=== PATIENT | female | born 1985 | race Caucasian/White ===

== ENCOUNTER 2020-10-26 13:54 | Inpatient (IN) | payer MEDICAID ==
[~2020-10-26] VITALS: Ht 160 cm; Wt 101.2 kg
[2020-10-26] MEDS ORDERED: SODIUM CHLORIDE 0.9% 1000ML BAG (SEPSIS BOLUS) IV ONE (14:30)
[2020-10-26] MEDS ORDERED: ACETAMINOPHEN 325MG TABLET PO ONE (14:30)
[2020-10-26] MEDS ORDERED: CEFTRIAXONE 1 G PREMIX 50 ML IV ONE (14:30)
[2020-10-26] MEDS ORDERED: AZITHROMYCIN 500 MG in DEXT 5% WATER 250 ML IV ONE (14:30)
[2020-10-26 15:04] LABS: CHLORIDE 103 mEq/L (98-107)
[2020-10-26 15:06] LABS: BASOPHILS % 0.5 % (0.0-2.0); HEMOGLOBIN. 14.3 g/dL (12.0-16.0); INR 1.1; LYMPHOCYTES % 11.9 % (20.0-50.0); MEAN CORPUSCULAR HEMOGLOBIN 26.3 pg (28.0-32.0); MEAN CORPUSCULAR VOLUME 80.5 fL (81.0-99.0); MEAN PLATELET VOLUME 11.3 fl (7.4-10.4); MONOCYTES % 7.1 % (2.0-8.0); NEUTROPHILS % 80.5 % (40.0-76.0); PLATELET 185 x1000/uL (130-400); PROTHROMBIN TIME 11.4 sec (9.6-11.0); RED BLOOD CELL COUNT 5.46 mill/uL (4.2-5.4); RED CELL DISTRIBUTION WIDTH 15.3 % (11.6-14.6)
[2020-10-26 15:08] LABS: ETHANOL BLOOD < 10 mg/dL
[2020-10-26 15:13] LABS: HCG SCREEN NEGATIVE
[2020-10-26 15:15] LABS: CREATINE KINASE 83 IU/L (26-192)
[2020-10-26] MEDS ORDERED: DEXAMETHASONE 10 MG/ML VIAL IV NR (15:30)
[2020-10-26] MEDS ORDERED: KETOROLAC 15MG/ML VIAL IV NR (15:30)
[2020-10-26 16:24] LABS: CLARITY URINE CLEAR (CLEAR); COLOR URINE YELLOW (YELLOW); KETONES URINE 2+ (NEGATIVE); LEUKOCYTE ESTERASE URINE NEGATIVE (NEGATIVE); NITRITE URINE NEGATIVE (NEGATIVE); OCCULT BLOOD URINE NEGATIVE (NEGATIVE); PH URINE 5.5 (4.5-8.0); PROTEIN URINE 2+ (NEGATIVE)
[2020-10-26 17:02] LABS: *AMPHETAMINES SCREEN URINE NEGATIVE (NEGATIVE); *BARBITURATES SCREEN URINE NEGATIVE (NEGATIVE); *BENZODIAZEPINES SCREEN URINE NEGATIVE (NEGATIVE); *COCAINE SCREEN URINE NEGATIVE (NEGATIVE); METHADONE URINE SCREEN NEGATIVE (NEGATIVE); OPIATES URINE SCREEN NEGATIVE (NEGATIVE)
[2020-10-26 17:03] LABS: CANNABINOID URINE SCREEN NEGATIVE (NEGATIVE); PHENCYCLIDINE URINE SCREEN NEGATIVE (NEGATIVE)
[2020-10-26] MEDS ORDERED: NA PHOS,M-B/NA PHOS,DI-BA ENEMA 118ML PR PRN (19:30)
[2020-10-26] MEDS ORDERED: MAGNESIUM/ALUMINUM HYDROXIDE/SIMETHICONE 30ML UDC PO PRN (19:30)
[2020-10-26] MEDS ORDERED: DIPHENHYDRAMINE 50MG/ML VIAL IV PRN (19:30)
[2020-10-26] MEDS ORDERED: CLONIDINE 0.1MG TABLET PO PRN (19:30)
[2020-10-26] MEDS ORDERED: ENOXAPARIN 40MG/0.4ML SYR SUBCUT SCH (21:00)
[2020-10-26] MEDS: ONDANSETRON HCL 4MG/2ML INJ IV PRN (22:10)
[2020-10-26] MEDS ORDERED: IOHEXOL-350 100 ML BOTTLE ONE (23:21)
[2020-10-27 04:12] VITALS: BP 119/79
[2020-10-27 04:13] VITALS: BP 119/79
[2020-10-27] MEDS ORDERED: P20 MT (04:27)
[2020-10-27] MEDS ORDERED: LEVO50TA8 MT (04:27)
[2020-10-27] MEDS ORDERED: OMEP20CA14 MT (04:27)
[2020-10-27] MEDS ORDERED: CHOL200026 PO (04:27)
[2020-10-27] MEDS ORDERED: GUAIFENESIN-DM 200MG-20MG/10ML UDC PO PRN (04:45)
[2020-10-27] MEDS ORDERED: NALOXONE HCL 0.4MG/ML VIAL IV PRN (04:45)
[2020-10-27] MEDS: ALBUTEROL 6.7GM HFA INHALER ORI PRN (04:48)
[2020-10-27] MEDS ORDERED: *PATIENT'S OWN MEDICATION STORAGE XX SCH (05:00)
[2020-10-27 08:00] VITALS: BP 110/51
[2020-10-27] MEDS ORDERED: FAMOTIDINE 20MG/2ML VIAL IV SCH (09:00)
[2020-10-27] MEDS ORDERED: DEXAMETHASONE 10 MG/ML VIAL IV SCH (09:00)
[2020-10-27 09:56] LABS: BASOPHILS % 0.3 % (0.0-2.0); HEMATOCRIT. 38.7 % (36.0-48.0); HEMOGLOBIN. 12.7 g/dL (12.0-16.0); LYMPHOCYTES % 30.7 % (20.0-50.0); MEAN CORPUSCULAR HEMOGLOBIN 26.3 pg (28.0-32.0); MEAN CORPUSCULAR VOLUME 80.1 fL (81.0-99.0); MEAN PLATELET VOLUME 11.6 fl (7.4-10.4); MONOCYTES % 6.2 % (2.0-8.0); NEUTROPHILS % 62.8 % (40.0-76.0); PLATELET 151 x1000/uL (130-400); RED BLOOD CELL COUNT 4.84 mill/uL (4.2-5.4); RED CELL DISTRIBUTION WIDTH 14.8 % (11.6-14.6)
[2020-10-27 10:15] LABS: CHLORIDE 108 mEq/L (98-107)
[2020-10-27 10:23] LABS: LDL CHOLESTEROL 84 mg/dL (5-100)
[2020-10-27 10:25] LABS: HDL CHOLESTEROL 25 mg/dL (40-59)
[2020-10-27 12:00] VITALS: BP 97/60
[2020-10-27] MEDS: GUAIFENESIN-DM 200MG-20MG/10ML UDC PO PRN ×2 (12:57→20:41)
[2020-10-27] MEDS: CEFTRIAXONE 1,000 MG in DEXTROSE 5% WATER 50 ML IV SCH (14:43)
[2020-10-27] MEDS: AZITHROMYCIN 500 MG in DEXT 5% WATER 250 ML IV SCH (14:43)
[2020-10-27] MEDS ORDERED: CEFTRIAXONE 1 G PREMIX 50 ML IV SCH (15:00)
[2020-10-27] MEDS ORDERED: AZITHROMYCIN 500 MG in DEXT 5% WATER 250 ML IV SCH (17:00)
[2020-10-27 20:00] VITALS: BP 114/66
[2020-10-27] MEDS: ENOXAPARIN 30MG/0.3ML SYR SUBCUT SCH (20:41)
[2020-10-27] MEDS: HYDROCODONE/ACETAMINOPHEN 5/325MG TABLET PO PRN (20:42)
[2020-10-28] VITALS: BP 107/58
[2020-10-28] MEDS: ACETAMINOPHEN 325MG TABLET PO PRN ×4 (00:35→20:57)
[2020-10-28 04:00] VITALS: BP 104/47
[2020-10-28] MEDS: LEVOTHYROXINE SODIUM 50MCG TABLET PO SCH ×2 (06:24→07:40)
[2020-10-28] MEDS: ALBUTEROL 6.7GM HFA INHALER ORI PRN (06:28)
[2020-10-28] MEDS ORDERED: OMEPRAZOLE 20MG CAPSULE EXTENDED RELEASE PO SCH (07:40)
[2020-10-28] MEDS: OMEPRAZOLE 20MG CAPSULE EXTENDED RELEASE PO SCH (07:53)
[2020-10-28 08:00] VITALS: BP 120/70
[2020-10-28] MEDS: ENOXAPARIN 30MG/0.3ML SYR SUBCUT SCH (08:08)
[2020-10-28] MEDS ORDERED: PREDNISONE 20MG TABLET PO SCH (09:00)
[2020-10-28 12:00] VITALS: BP 117/77
[2020-10-28] MEDS: AZITHROMYCIN 500 MG in DEXT 5% WATER 250 ML IV SCH (14:27)
[2020-10-28] MEDS: CEFTRIAXONE 1,000 MG in DEXTROSE 5% WATER 50 ML IV SCH (15:29)
[2020-10-28] MEDS: ONDANSETRON HCL 4MG/2ML INJ IV PRN (15:29)
[2020-10-28 16:00] VITALS: BP 115/82
[2020-10-28] MEDS: GUAIFENESIN-DM 200MG-20MG/10ML UDC PO PRN (17:38)
[2020-10-28 18:29] LABS: BASOPHILS % 0.3 % (0.0-2.0); HEMATOCRIT. 43.2 % (36.0-48.0); HEMOGLOBIN. 13.7 g/dL (12.0-16.0); LYMPHOCYTES % 27.4 % (20.0-50.0); MEAN CORPUSCULAR HEMOGLOBIN 25.6 pg (28.0-32.0); MEAN CORPUSCULAR VOLUME 80.9 fL (81.0-99.0); MEAN PLATELET VOLUME 11.6 fl (7.4-10.4); MONOCYTES % 11.5 % (2.0-8.0); NEUTROPHILS % 60.8 % (40.0-76.0); PLATELET 181 x1000/uL (130-400); RED BLOOD CELL COUNT 5.34 mill/uL (4.2-5.4); RED CELL DISTRIBUTION WIDTH 15.1 % (11.6-14.6)
[2020-10-28 18:42] LABS: CHLORIDE 104 mEq/L (98-107)
[2020-10-28 20:00] VITALS: BP 120/70
[2020-10-28] MEDS: ENOXAPARIN 40MG/0.4ML SYR SUBCUT SCH (20:57)
[2020-10-28 22:24] LABS: CLARITY URINE CLEAR (CLEAR); COLOR URINE YELLOW (YELLOW); KETONES URINE TRACE (NEGATIVE); LEUKOCYTE ESTERASE URINE NEGATIVE (NEGATIVE); NITRITE URINE NEGATIVE (NEGATIVE); OCCULT BLOOD URINE NEGATIVE (NEGATIVE); PROTEIN URINE 2+ (NEGATIVE); UROBILINOGEN URINE 0.2 E.U./dL (0.2-1.0)
[2020-10-29] VITALS: BP 132/64
[2020-10-29] MEDS: ACETAMINOPHEN 325MG TABLET PO PRN ×4 (02:35→19:40)
[2020-10-29 04:00] VITALS: BP 129/80
[2020-10-29] MEDS ORDERED: LIDOCAINE HCL/PF 1% 2ML VIAL ONE (05:00)
[2020-10-29 08:00] VITALS: BP 100/62
[2020-10-29] MEDS: OMEPRAZOLE 20MG CAPSULE EXTENDED RELEASE PO SCH (08:06)
[2020-10-29] MEDS: DEXAMETHASONE 6MG TABLET PO SCH (08:07)
[2020-10-29] MEDS: ENOXAPARIN 40MG/0.4ML SYR SUBCUT SCH ×2 (08:07→20:16)
[2020-10-29] MEDS: LEVOTHYROXINE SODIUM 50MCG TABLET PO SCH (08:07)
[2020-10-29 09:24] LABS: BG BASE EXCESS 0.9 mmol/L (-2.0-2.0); BG CARBOXYHEMOGLOBIN 0.1 % (0.5-1.5); BG DEOXYHEMOGLOBIN 10.1 % (0.0-5.0); BG HCO3 ACT 24.4 mmol/L (22.0-26.0); BG METHEMOGLOBIN 0.4 % (0.0-1.5); BG OXYGEN SATURATION 89.8 % (92.0-98.5); BG OXYHEMOGLOBIN 89.4 % (94.0-97.0); BG PCO2 35.6 mmHg (35.0-45.0); BG PH 7.454 (7.350-7.450); BG PO2 54.3 mmHg (75.0-100.0); BG SAMPLE SITE RIGHT RADIAL; BG TOTAL HEMOGLOBIN 14.6 g/dL (12.0-18.0); BG VENT MODE ROOM AIR
[2020-10-29 12:00] VITALS: BP 119/65
[2020-10-29] MEDS: AZITHROMYCIN 500 MG in DEXT 5% WATER 250 ML IV SCH (14:03)
[2020-10-29] MEDS: CEFTRIAXONE 1,000 MG in DEXTROSE 5% WATER 50 ML IV SCH (14:03)
[2020-10-29] MEDS: GUAIFENESIN-DM 200MG-20MG/10ML UDC PO PRN (14:03)
[2020-10-29 16:00] VITALS: BP 119/75
[2020-10-29 20:00] VITALS: BP 102/57
[2020-10-30] VITALS: BP 122/67
[2020-10-30] MEDS: ACETAMINOPHEN 325MG TABLET PO PRN ×3 (01:00→20:53)
[2020-10-30 04:00] VITALS: BP 115/58
[2020-10-30] MEDS: HYDROCODONE/ACETAMINOPHEN 5/325MG TABLET PO PRN (06:15)
[2020-10-30 08:00] VITALS: BP 100/70
[2020-10-30] MEDS: DEXAMETHASONE 6MG TABLET PO SCH (08:10)
[2020-10-30] MEDS: LEVOTHYROXINE SODIUM 50MCG TABLET PO SCH (08:10)
[2020-10-30] MEDS: OMEPRAZOLE 20MG CAPSULE EXTENDED RELEASE PO SCH (08:10)
[2020-10-30] MEDS: ENOXAPARIN 40MG/0.4ML SYR SUBCUT SCH (08:11)
[2020-10-30 12:00] VITALS: BP_SYST 151; BP_SYST 99; BP_DIAS 72; BP_DIAS 91
[2020-10-30 12:27] LABS: BASOPHILS % 0.2 % (0.0-2.0); HEMATOCRIT. 46.6 % (36.0-48.0); HEMOGLOBIN. 14.6 g/dL (12.0-16.0); LYMPHOCYTES % 15.8 % (20.0-50.0); MEAN CORPUSCULAR VOLUME 82.9 fL (81.0-99.0); MEAN PLATELET VOLUME 11.9 fl (7.4-10.4); MONOCYTES % 7.2 % (2.0-8.0); NEUTROPHILS % 76.8 % (40.0-76.0); PLATELET 157 x1000/uL (130-400); RED BLOOD CELL COUNT 5.62 mill/uL (4.2-5.4); RED CELL DISTRIBUTION WIDTH 15.2 % (11.6-14.6)
[2020-10-30 12:29] LABS: CHLORIDE 101 mEq/L (98-107)
[2020-10-30] MEDS: AZITHROMYCIN 500 MG in DEXT 5% WATER 250 ML IV SCH (13:03)
[2020-10-30] MEDS ORDERED: POTASSIUM CHLORIDE 20MEQ TABLET SR PO NR (15:00)
[2020-10-30] MEDS: CEFTRIAXONE 1,000 MG in DEXTROSE 5% WATER 50 ML IV SCH (15:05)
[2020-10-30 16:00] VITALS: BP 106/70
[2020-10-30] MEDS: BENZONATATE 100MG CAPSULE PO PRN (17:51)
[2020-10-30] MEDS: ALBUTEROL 6.7GM HFA INHALER ORI SCH (17:52)
[2020-10-30 20:00] VITALS: BP 105/69
[2020-10-30] MEDS: ENOXAPARIN 30MG/0.3ML SYR SUBCUT SCH (20:52)
[2020-10-30] MEDS: GUAIFENESIN-DM 200MG-20MG/10ML UDC PO PRN (20:52)
[2020-10-31] VITALS: BP 116/68
[2020-10-31] MEDS: BENZONATATE 100MG CAPSULE PO PRN ×2 (00:49→09:07)
[2020-10-31] MEDS: HYDROCODONE/ACETAMINOPHEN 5/325MG TABLET PO PRN ×2 (00:56→05:27)
[2020-10-31 04:00] VITALS: BP 108/64
[2020-10-31] MEDS: ACETAMINOPHEN 325MG TABLET PO PRN ×2 (05:17→23:42)
[2020-10-31 08:00] VITALS: BP 111/74
[2020-10-31] MEDS: OMEPRAZOLE 20MG CAPSULE EXTENDED RELEASE PO SCH (08:23)
[2020-10-31] MEDS: LEVOTHYROXINE SODIUM 50MCG TABLET PO SCH (08:23)
[2020-10-31] MEDS: DEXAMETHASONE 6MG TABLET PO SCH (08:23)
[2020-10-31] MEDS: ENOXAPARIN 30MG/0.3ML SYR SUBCUT SCH ×2 (09:07→21:29)
[2020-10-31] MEDS: ALBUTEROL 6.7GM HFA INHALER ORI SCH ×3 (11:37→23:17)
[2020-10-31] MEDS ORDERED: FUROSEMIDE 40MG TABLET PO NR (15:00)
[2020-10-31] MEDS: CEFTRIAXONE 1,000 MG in DEXTROSE 5% WATER 50 ML IV SCH (15:07)
[2020-10-31] MEDS ORDERED: IBUPROFEN 400MG TABLET PO PRN (15:45)
[2020-10-31 16:00] VITALS: BP 118/71
[2020-10-31] MEDS: IVERMECTIN 3 MG TABLET PO SCH (16:24)
[2020-10-31] MEDS: TRAMADOL 50MG TABLET PO PRN ×2 (18:35→23:17)
[2020-10-31 20:00] VITALS: BP 101/64
[2020-10-31] MEDS: GUAIFENESIN-DM 200MG-20MG/10ML UDC PO PRN (21:28)
[2020-11-01] VITALS: BP 117/68
[2020-11-01 04:00] VITALS: BP 102/63
[2020-11-01] MEDS: ALBUTEROL 6.7GM HFA INHALER ORI SCH ×3 (05:53→17:02)
[2020-11-01] MEDS: TRAMADOL 50MG TABLET PO PRN ×2 (05:56→22:20)
[2020-11-01] MEDS: GUAIFENESIN-DM 200MG-20MG/10ML UDC PO PRN ×2 (07:06→20:21)
[2020-11-01 08:22] LABS: CHLORIDE 99 mEq/L (98-107)
[2020-11-01] MEDS: LEVOTHYROXINE SODIUM 50MCG TABLET PO SCH (08:49)
[2020-11-01] MEDS: DEXAMETHASONE 6MG TABLET PO SCH (08:49)
[2020-11-01] MEDS: FAMOTIDINE 20MG TABLET PO SCH ×2 (08:49→20:21)
[2020-11-01] MEDS: ENOXAPARIN 30MG/0.3ML SYR SUBCUT SCH (10:11)
[2020-11-01] MEDS ORDERED: POTASSIUM CHLORIDE 20MEQ TABLET SR PO NR (11:15)
[2020-11-01 12:00] VITALS: BP 138/70
[2020-11-01] MEDS: ACETAMINOPHEN 325MG TABLET PO PRN (12:01)
[2020-11-01] MEDS: CEFTRIAXONE 1,000 MG in DEXTROSE 5% WATER 50 ML IV SCH (14:59)
[2020-11-01 16:00] VITALS: BP 126/63
[2020-11-01] MEDS: IVERMECTIN 3 MG TABLET PO SCH (17:01)
[2020-11-01 20:00] VITALS: BP 122/61
[2020-11-01] MEDS: ENOXAPARIN 40MG/0.4ML SYR SUBCUT SCH (20:21)
[2020-11-02] VITALS: BP 132/78
[2020-11-02] MEDS: ALBUTEROL 6.7GM HFA INHALER ORI SCH ×4 (00:25→18:27)
[2020-11-02 04:00] VITALS: BP 122/70
[2020-11-02] MEDS: TRAMADOL 50MG TABLET PO PRN ×3 (06:27→19:01)
[2020-11-02 08:07] VITALS: BP 98/66
[2020-11-02] MEDS: DEXAMETHASONE 6MG TABLET PO SCH (08:31)
[2020-11-02] MEDS: FAMOTIDINE 20MG TABLET PO SCH ×2 (08:31→21:09)
[2020-11-02] MEDS: LEVOTHYROXINE SODIUM 50MCG TABLET PO SCH (08:32)
[2020-11-02] MEDS: ENOXAPARIN 40MG/0.4ML SYR SUBCUT SCH ×2 (08:32→21:10)
[2020-11-02] MEDS: ONDANSETRON HCL 4MG/2ML INJ IV PRN (09:29)
[2020-11-02 12:00] VITALS: BP 106/66
[2020-11-02] MEDS: IVERMECTIN 3 MG TABLET PO SCH (15:17)
[2020-11-02] MEDS: BENZONATATE 100MG CAPSULE PO PRN (15:17)
[2020-11-02 16:00] VITALS: BP 130/72
[2020-11-02 20:00] VITALS: BP 113/68
[2020-11-03] VITALS: BP 95/55
[2020-11-03] MEDS: ALBUTEROL 6.7GM HFA INHALER ORI SCH ×4 (01:15→17:20)
[2020-11-03] MEDS: GUAIFENESIN-DM 200MG-20MG/10ML UDC PO PRN ×2 (03:11→17:19)
[2020-11-03] MEDS: TRAMADOL 50MG TABLET PO PRN ×2 (03:19→09:58)
[2020-11-03 04:00] VITALS: BP 99/64
[2020-11-03 06:57] LABS: BASOPHILS % 0.1 % (0.0-2.0); HEMATOCRIT. 39.7 % (36.0-48.0); LYMPHOCYTES % 9.3 % (20.0-50.0); MEAN CORPUSCULAR VOLUME 79.8 fL (81.0-99.0); MONOCYTES % 5.2 % (2.0-8.0); NEUTROPHILS % 85.4 % (40.0-76.0); PLATELET 358 x1000/uL (130-400); RED BLOOD CELL COUNT 4.98 mill/uL (4.2-5.4); RED CELL DISTRIBUTION WIDTH 14.5 % (11.6-14.6)
[2020-11-03 07:15] LABS: CHLORIDE 99 mEq/L (98-107)
[2020-11-03] MEDS: ONDANSETRON HCL 4MG/2ML INJ IV PRN (07:56)
[2020-11-03 08:00] VITALS: BP 106/62
[2020-11-03] MEDS: LEVOTHYROXINE SODIUM 50MCG TABLET PO SCH (09:18)
[2020-11-03] MEDS: DEXAMETHASONE 6MG TABLET PO SCH (09:18)
[2020-11-03] MEDS: FAMOTIDINE 20MG TABLET PO SCH ×2 (09:18→20:32)
[2020-11-03 12:00] VITALS: BP 108/57
[2020-11-03] MEDS: ENOXAPARIN 40MG/0.4ML SYR SUBCUT SCH (12:40)
[2020-11-03] MEDS ORDERED: FLUMAZENIL 0.1 MG/ML 5ML VIAL IV PRN (15:30)
[2020-11-03 16:00] VITALS: BP 123/79
[2020-11-03] MEDS: IVERMECTIN 3 MG TABLET PO SCH (17:20)
[2020-11-03 20:00] VITALS: BP 108/60
[2020-11-03] MEDS: ENOXAPARIN 30MG/0.3ML SYR SUBCUT SCH (20:32)
[2020-11-04] VITALS (8 sets, daily range): BP systolic 111–133; BP diastolic 56–84
[2020-11-04] MEDS: ALBUTEROL 6.7GM HFA INHALER ORI SCH ×5 (00:06→23:54)
[2020-11-04] MEDS: ONDANSETRON HCL 4MG/2ML INJ IV PRN (00:06)
[2020-11-04] MEDS: GUAIFENESIN-DM 200MG-20MG/10ML UDC PO PRN (00:19)
[2020-11-04] MEDS: BENZONATATE 100MG CAPSULE PO PRN (08:29)
[2020-11-04] MEDS: FAMOTIDINE 20MG TABLET PO SCH ×2 (08:29→20:49)
[2020-11-04] MEDS: ALPRAZOLAM 0.25 MG TABLET PO PRN (08:29)
[2020-11-04] MEDS: DEXAMETHASONE 6MG TABLET PO SCH (08:29)
[2020-11-04] MEDS: LEVOTHYROXINE SODIUM 50MCG TABLET PO SCH (08:29)
[2020-11-04] MEDS: ENOXAPARIN 30MG/0.3ML SYR SUBCUT SCH ×2 (08:29→20:49)
[2020-11-04] MEDS: ACETAMINOPHEN 325MG TABLET PO PRN ×2 (08:30→12:44)
[2020-11-04] MEDS: CEFEPIME 1,000 MG in DEXTROSE 5% WATER 50 ML IV SCH (15:39)
[2020-11-04] MEDS: IVERMECTIN 3 MG TABLET PO SCH (15:39)
[2020-11-05] VITALS (36 sets, daily range): BP systolic 108–141; BP diastolic 59–80
[2020-11-05] MEDS: ACETAMINOPHEN 650MG/20.3ML UDC GT PRN (00:10)
[2020-11-05] MEDS: CEFEPIME 1,000 MG in DEXTROSE 5% WATER 50 ML IV SCH ×2 (04:16→15:36)
[2020-11-05] MEDS: ALBUTEROL 6.7GM HFA INHALER ORI SCH ×2 (05:46→11:28)
[2020-11-05] MEDS: LEVOTHYROXINE SODIUM 50MCG TABLET PO SCH (06:18)
[2020-11-05] MEDS: DEXAMETHASONE 6MG TABLET PO SCH (09:21)
[2020-11-05] MEDS: TRAMADOL 50MG TABLET PO PRN (09:21)
[2020-11-05] MEDS: BENZONATATE 100MG CAPSULE PO PRN (09:21)
[2020-11-05] MEDS: ENOXAPARIN 30MG/0.3ML SYR SUBCUT SCH ×2 (09:22→20:13)
[2020-11-05] MEDS: GUAIFENESIN-DM 200MG-20MG/10ML UDC PO PRN ×2 (09:37→20:11)
[2020-11-05] MEDS: FAMOTIDINE 20MG TABLET PO SCH ×2 (09:58→20:11)
[2020-11-05 10:24] LABS: BG BASE EXCESS 8.2 mmol/L (-2.0-2.0); BG CARBOXYHEMOGLOBIN 0.2 % (0.5-1.5); BG DEOXYHEMOGLOBIN 12.7 % (0.0-5.0); BG FRACTION INSPIRED OXYGEN 100; BG HCO3 ACT 33.1 mmol/L (22.0-26.0); BG METHEMOGLOBIN 0.1 % (0.0-1.5); BG OXYGEN SATURATION 87.3 % (92.0-98.5); BG PCO2 46.5 mmHg (35.0-45.0); BG PO2 52.1 mmHg (75.0-100.0); BG SAMPLE SITE LEFT RADIAL; BG TOTAL HEMOGLOBIN 13.8 g/dL (12.0-18.0); BG VENT MODE MASK - BIPAP
[2020-11-05] MEDS: ALPRAZOLAM 0.25 MG TABLET PO PRN (12:22)
[2020-11-05] MEDS: ACETAMINOPHEN 325MG TABLET PO PRN (12:22)
[2020-11-06] VITALS (35 sets, daily range): BP systolic 103–155; BP diastolic 37–118
[2020-11-06] MEDS: CEFEPIME 1,000 MG in DEXTROSE 5% WATER 50 ML IV SCH (04:06)
[2020-11-06 05:07] LABS: HEMOGLOBIN. 12.6 g/dL (12.0-16.0); MEAN CORPUSCULAR VOLUME 82.1 fL (81.0-99.0); MEAN PLATELET VOLUME 10.9 fl (7.4-10.4); PLATELET 436 x1000/uL (130-400); RED BLOOD CELL COUNT 4.87 mill/uL (4.2-5.4); RED CELL DISTRIBUTION WIDTH 14.7 % (11.6-14.6)
[2020-11-06 05:08] LABS: CHLORIDE 99 mEq/L (98-107)
[2020-11-06] MEDS: LEVOTHYROXINE SODIUM 50MCG TABLET PO SCH (05:33)
[2020-11-06 07:14] LABS: PLATELET ESTIMATE INCREASED
[2020-11-06] MEDS: ENOXAPARIN 30MG/0.3ML SYR SUBCUT SCH ×2 (08:44→20:14)
[2020-11-06] MEDS: FAMOTIDINE 20MG TABLET PO SCH ×2 (08:44→20:13)
[2020-11-06] MEDS: DEXAMETHASONE 6MG TABLET PO SCH (08:44)
[2020-11-06] MEDS: CEFEPIME 2,000 MG in DEXT 5% WATER 100 ML IV SCH ×2 (09:51→20:13)
[2020-11-06] MEDS: ACETAMINOPHEN 325MG TABLET PO PRN (12:01)
[2020-11-06] MEDS: ALBUTEROL 6.7GM HFA INHALER ORI SCH (21:20)
[2020-11-07] VITALS (33 sets, daily range): BP systolic 108–152; BP diastolic 60–90
[2020-11-07] MEDS: LEVOTHYROXINE SODIUM 50MCG TABLET PO SCH (05:59)
[2020-11-07] MEDS: ALBUTEROL 6.7GM HFA INHALER ORI SCH ×3 (08:32→20:32)
[2020-11-07] MEDS: ACETAMINOPHEN 325MG TABLET PO PRN (10:00)
[2020-11-07] MEDS: ENOXAPARIN 30MG/0.3ML SYR SUBCUT SCH ×2 (10:00→21:04)
[2020-11-07] MEDS: FAMOTIDINE 20MG TABLET PO SCH ×2 (10:00→21:04)
[2020-11-07] MEDS: CEFEPIME 2,000 MG in DEXT 5% WATER 100 ML IV SCH ×2 (10:00→21:04)
[2020-11-07] MEDS: DEXAMETHASONE 10 MG/ML VIAL IV SCH (10:01)
[2020-11-07] MEDS: BENZONATATE 100MG CAPSULE PO PRN (16:44)
[2020-11-08] VITALS (17 sets, daily range): BP systolic 98–131; BP diastolic 51–78
[2020-11-08] MEDS: ACETAMINOPHEN 650MG/20.3ML UDC GT PRN ×2 (02:09→21:14)
[2020-11-08] MEDS: ALBUTEROL 6.7GM HFA INHALER ORI SCH ×4 (02:30→20:14)
[2020-11-08] MEDS: DEXAMETHASONE 10 MG/ML VIAL IV SCH (09:24)
[2020-11-08] MEDS: FAMOTIDINE 20MG TABLET PO SCH ×2 (09:25→21:15)
[2020-11-08] MEDS: LEVOTHYROXINE SODIUM 50MCG TABLET PO SCH (09:25)
[2020-11-08] MEDS: ENOXAPARIN 30MG/0.3ML SYR SUBCUT SCH ×2 (09:25→21:14)
[2020-11-08] MEDS: CEFEPIME 2,000 MG in DEXT 5% WATER 100 ML IV SCH ×2 (09:26→21:14)
[2020-11-08] MEDS: ACETAMINOPHEN 325MG TABLET PO PRN (09:40)
[2020-11-08 16:16] LABS: HEMATOCRIT. 38.4 % (36.0-48.0); HEMOGLOBIN. 12.3 g/dL (12.0-16.0); MEAN CORPUSCULAR HEMOGLOBIN 26.1 pg (28.0-32.0); MEAN CORPUSCULAR VOLUME 81.1 fL (81.0-99.0); MEAN PLATELET VOLUME 10.7 fl (7.4-10.4); PLATELET 377 x1000/uL (130-400); RED BLOOD CELL COUNT 4.73 mill/uL (4.2-5.4); RED CELL DISTRIBUTION WIDTH 14.9 % (11.6-14.6)
[2020-11-08 16:22] LABS: CHLORIDE 101 mEq/L (98-107)
[2020-11-08] MEDS: BENZONATATE 100MG CAPSULE PO PRN (21:40)
[2020-11-08 21:44] LABS: PLATELET ESTIMATE NORMAL
[2020-11-09] VITALS (24 sets, daily range): BP systolic 69–137; BP diastolic 38–91
[2020-11-09] MEDS: ALBUTEROL 6.7GM HFA INHALER ORI SCH ×4 (02:12→20:45)
[2020-11-09 06:26] LABS: BASOPHILS % 0.3 % (0.0-2.0); HEMATOCRIT. 38.8 % (36.0-48.0); HEMOGLOBIN. 12.5 g/dL (12.0-16.0); LYMPHOCYTES % 7.5 % (20.0-50.0); MEAN CORPUSCULAR HEMOGLOBIN 25.9 pg (28.0-32.0); MEAN CORPUSCULAR VOLUME 80.5 fL (81.0-99.0); MEAN PLATELET VOLUME 10.9 fl (7.4-10.4); MONOCYTES % 3.8 % (2.0-8.0); NEUTROPHILS % 87.4 % (40.0-76.0); PLATELET 393 x1000/uL (130-400); RED BLOOD CELL COUNT 4.83 mill/uL (4.2-5.4); RED CELL DISTRIBUTION WIDTH 14.7 % (11.6-14.6)
[2020-11-09 06:28] LABS: CHLORIDE 102 mEq/L (98-107)
[2020-11-09] MEDS: FAMOTIDINE 20MG TABLET PO SCH ×2 (08:10→21:21)
[2020-11-09] MEDS: DEXAMETHASONE 10 MG/ML VIAL IV SCH (08:10)
[2020-11-09] MEDS: LEVOTHYROXINE SODIUM 50MCG TABLET PO SCH (08:10)
[2020-11-09] MEDS: CEFEPIME 2,000 MG in DEXT 5% WATER 100 ML IV SCH ×2 (08:10→21:20)
[2020-11-09] MEDS: ENOXAPARIN 30MG/0.3ML SYR SUBCUT SCH ×2 (08:10→21:20)
[2020-11-09] MEDS: ACETAMINOPHEN 650MG/20.3ML UDC GT PRN ×2 (10:39→19:57)
[2020-11-09] MEDS: ONDANSETRON HCL 4MG/2ML INJ IV PRN (16:05)
[2020-11-10] VITALS (24 sets, daily range): BP systolic 90–140; BP diastolic 29–83
[2020-11-10] MEDS: ALBUTEROL 6.7GM HFA INHALER ORI SCH ×4 (01:26→16:48)
[2020-11-10] MEDS: ENOXAPARIN 30MG/0.3ML SYR SUBCUT SCH ×2 (09:32→21:12)
[2020-11-10] MEDS: FAMOTIDINE 20MG TABLET PO SCH ×2 (09:32→21:13)
[2020-11-10] MEDS: DEXAMETHASONE 10 MG/ML VIAL IV SCH (09:32)
[2020-11-10] MEDS: LEVOTHYROXINE SODIUM 50MCG TABLET PO SCH (09:32)
[2020-11-10] MEDS: CEFEPIME 2,000 MG in DEXT 5% WATER 100 ML IV SCH ×2 (09:34→21:13)
[2020-11-10 09:54] LABS: BG BASE EXCESS 3.8 mmol/L (-2.0-2.0); BG CARBOXYHEMOGLOBIN 0.6 % (0.5-1.5); BG DEOXYHEMOGLOBIN 7.7 % (0.0-5.0); BG FRACTION INSPIRED OXYGEN 100; BG METHEMOGLOBIN 0.2 % (0.0-1.5); BG OXYGEN SATURATION 92.2 % (92.0-98.5); BG OXYHEMOGLOBIN 91.5 % (94.0-97.0); BG PH 7.453 (7.350-7.450); BG PO2 61.9 mmHg (75.0-100.0); BG SAMPLE SITE RIGHT RADIAL; BG TOTAL HEMOGLOBIN 13.9 g/dL (12.0-18.0); BG VENT MODE MASK - BIPAP
[2020-11-11] VITALS (39 sets, daily range): BP systolic 36–163; BP diastolic 25–97
[2020-11-11] MEDS ORDERED: ETOMIDATE 2MG/ML 10ML VIAL IV ONE (08:07)
[2020-11-11] MEDS ORDERED: SUCCINYLCHOLINE CHLORIDE 200MG/10ML IV ONE (08:07)
[2020-11-11] MEDS: ALBUTEROL 6.7GM HFA INHALER ORI SCH (08:33)
[2020-11-11] MEDS: CEFEPIME 2,000 MG in DEXT 5% WATER 100 ML IV SCH (08:51)
[2020-11-11] MEDS: ENOXAPARIN 30MG/0.3ML SYR SUBCUT SCH ×2 (08:52→23:15)
[2020-11-11] MEDS: FAMOTIDINE 20MG TABLET PO SCH ×2 (08:52→21:00)
[2020-11-11] MEDS: LEVOTHYROXINE SODIUM 50MCG TABLET PO SCH (08:52)
[2020-11-11] MEDS: DEXAMETHASONE 10 MG/ML VIAL IV SCH (08:53)
[2020-11-11] MEDS ORDERED: IPRATROPIUM/ALBUTEROL 0.5-3(2.5)MG/3ML NEB HHN PRN (10:00)
[2020-11-11] MEDS: ACETAMINOPHEN 650MG/20.3ML UDC GT PRN (12:22)
[2020-11-11] MEDS: IPRATROPIUM/ALBUTEROL 0.5-3(2.5)MG/3ML NEB HHN SCH ×2 (15:19→20:47)
[2020-11-11] MEDS: PROPOFOL 10MG/ML 100ML 100 ML IV PRN ×3 (20:03→23:06)
[2020-11-11] MEDS: FENTANYL CITRATE/PF 2,500 MCG in SODIUM CHLORIDE 0.9% 200 ML IV PRN (20:46)
[2020-11-11 20:56] LABS: BG BASE EXCESS -5.5 mmol/L (-2.0-2.0); BG CARBOXYHEMOGLOBIN 0.3 % (0.5-1.5); BG FRACTION INSPIRED OXYGEN 100; BG HCO3 ACT 19.9 mmol/L (22.0-26.0); BG METHEMOGLOBIN 0.3 % (0.0-1.5); BG OXYHEMOGLOBIN 93.4 % (94.0-97.0); BG PCO2 38.7 mmHg (35.0-45.0); BG PO2 78.4 mmHg (75.0-100.0); BG SAMPLE SITE RIGHT RADIAL; BG TOTAL HEMOGLOBIN 13.3 g/dL (12.0-18.0); BG TOTAL RESPIRATORY RATE 28 b/min; BG VENT MODE VENT - AC
[2020-11-11] MEDS ORDERED: DOPAMINE 400MG/250ML PREMIX 250 ML IV PRN (21:20)
[2020-11-11] MEDS ORDERED: NOREPINEPHRINE 32 MG in DEXT 5% WATER 218 ML IV PRN (21:30)
[2020-11-11] MEDS: PHENYLEPHRINE 100 MG in DEXT 5% WATER 240 ML IV PRN (22:01)
[2020-11-11] MEDS: MIDAZOLAM HCL 100 MG in SODIUM CHLORIDE 0.9% 80 ML IV PRN (22:03)
[2020-11-12] VITALS (97 sets, daily range): BP systolic 79–148; BP diastolic 45–95
[2020-11-12] MEDS ORDERED: SODIUM CHLORIDE 0.9% 1000ML BAG (SEPSIS BOLUS) IV ONE ×2 (01:30)
[2020-11-12] MEDS: IPRATROPIUM/ALBUTEROL 0.5-3(2.5)MG/3ML NEB HHN SCH ×4 (02:31→20:55)
[2020-11-12] MEDS: FENTANYL CITRATE/PF 2,500 MCG in SODIUM CHLORIDE 0.9% 200 ML IV PRN ×2 (02:56→15:50)
[2020-11-12 06:42] LABS: BG BASE EXCESS 1.1 mmol/L (-2.0-2.0); BG CARBOXYHEMOGLOBIN 0.9 % (0.5-1.5); BG FRACTION INSPIRED OXYGEN 100; BG HCO3 ACT 26.3 mmol/L (22.0-26.0); BG METHEMOGLOBIN 0.3 % (0.0-1.5); BG OXYGEN SATURATION 77.7 % (92.0-98.5); BG OXYHEMOGLOBIN 76.8 % (94.0-97.0); BG PCO2 43.7 mmHg (35.0-45.0); BG PH 7.397 (7.350-7.450); BG PO2 43.5 mmHg (75.0-100.0); BG SAMPLE SITE RIGHT RADIAL; BG TOTAL HEMOGLOBIN 13.1 g/dL (12.0-18.0); BG TOTAL RESPIRATORY RATE 43 b/min; BG VENT MODE VENT - PRVC
[2020-11-12] MEDS ORDERED: VECURONIUM BROMIDE 10 MG/VIAL IV SCH (07:15)
[2020-11-12] MEDS: LEVOTHYROXINE SODIUM 50MCG TABLET PO SCH (07:50)
[2020-11-12] MEDS ORDERED: LIDOCAINE HCL 1% 20ML VIAL (Pyxis) INJ ONE (08:10)
[2020-11-12] MEDS: MIDAZOLAM HCL 100 MG in SODIUM CHLORIDE 0.9% 80 ML IV PRN ×2 (08:47→19:22)
[2020-11-12] MEDS: FAMOTIDINE 20MG TABLET PO SCH ×2 (08:48→22:35)
[2020-11-12] MEDS: ENOXAPARIN 30MG/0.3ML SYR SUBCUT SCH ×2 (09:05→22:36)
[2020-11-12] MEDS: DEXAMETHASONE 10 MG/ML VIAL IV SCH (09:05)
[2020-11-12 09:23] LABS: HEMOGLOBIN. 12.1 g/dL (12.0-16.0); MEAN CORPUSCULAR HEMOGLOBIN 25.8 pg (28.0-32.0); MEAN CORPUSCULAR VOLUME 81.3 fL (81.0-99.0); MEAN PLATELET VOLUME 11.4 fl (7.4-10.4); PLATELET 412 x1000/uL (130-400); RED BLOOD CELL COUNT 4.67 mill/uL (4.2-5.4); RED CELL DISTRIBUTION WIDTH 14.9 % (11.6-14.6)
[2020-11-12] MEDS: ACETAMINOPHEN 650MG SUPP PR PRN ×2 (09:43→15:59)
[2020-11-12] MEDS: PROPOFOL 10MG/ML 100ML 100 ML IV PRN ×3 (10:26→20:14)
[2020-11-12 11:24] LABS: PLATELET ESTIMATE NORMAL
[2020-11-12] MEDS: PHENYLEPHRINE 100 MG in DEXT 5% WATER 240 ML IV PRN (15:51)
[2020-11-13] VITALS (94 sets, daily range): BP systolic 85–156; BP diastolic 31–96
[2020-11-13] MEDS: PROPOFOL 10MG/ML 100ML 100 ML IV PRN ×2 (00:55→06:41)
[2020-11-13] MEDS: FENTANYL CITRATE/PF 2,500 MCG in SODIUM CHLORIDE 0.9% 200 ML IV PRN ×3 (02:57→21:26)
[2020-11-13] MEDS: IPRATROPIUM/ALBUTEROL 0.5-3(2.5)MG/3ML NEB HHN SCH ×4 (04:51→21:10)
[2020-11-13] MEDS: MIDAZOLAM HCL 100 MG in SODIUM CHLORIDE 0.9% 80 ML IV PRN ×3 (05:40→21:00)
[2020-11-13] MEDS: PHENYLEPHRINE 100 MG in DEXT 5% WATER 240 ML IV PRN ×2 (05:41→21:25)
[2020-11-13] MEDS: LEVOTHYROXINE SODIUM 50MCG TABLET PO SCH (08:38)
[2020-11-13] MEDS: ENOXAPARIN 30MG/0.3ML SYR SUBCUT SCH (09:26)
[2020-11-13] MEDS: DEXAMETHASONE 10 MG/ML VIAL IV SCH (09:26)
[2020-11-13] MEDS: FAMOTIDINE 20MG TABLET PO SCH ×2 (09:26→21:05)
[2020-11-13 09:41] LABS: BASOPHILS % 0.5 % (0.0-2.0); EOSINOPHILS % 0.1 % (0.0-5.0); HEMATOCRIT. 41.3 % (36.0-48.0); HEMOGLOBIN. 12.3 g/dL (12.0-16.0); LYMPHOCYTES % 8.1 % (20.0-50.0); MEAN CORPUSCULAR HEMOGLOBIN 25.7 pg (28.0-32.0); MEAN CORPUSCULAR VOLUME 86.2 fL (81.0-99.0); MEAN PLATELET VOLUME 11.2 fl (7.4-10.4); MONOCYTES % 3.8 % (2.0-8.0); NEUTROPHILS % 87.5 % (40.0-76.0); PLATELET 350 x1000/uL (130-400); RED BLOOD CELL COUNT 4.79 mill/uL (4.2-5.4); RED CELL DISTRIBUTION WIDTH 15.7 % (11.6-14.6)
[2020-11-13 10:06] LABS: BG BASE EXCESS -9.8 mmol/L (-2.0-2.0); BG CARBOXYHEMOGLOBIN 0.2 % (0.5-1.5); BG DEOXYHEMOGLOBIN 5.1 % (0.0-5.0); BG FRACTION INSPIRED OXYGEN 100; BG METHEMOGLOBIN 0.3 % (0.0-1.5); BG OXYGEN SATURATION 94.9 % (92.0-98.5); BG OXYHEMOGLOBIN 94.4 % (94.0-97.0); BG PCO2 54.4 mmHg (35.0-45.0); BG PH 7.162 (7.350-7.450); BG PO2 90.3 mmHg (75.0-100.0); BG SAMPLE SITE RIGHT BRACHIAL; BG TOTAL HEMOGLOBIN 12.8 g/dL (12.0-18.0); BG VENT MODE VENT - PRVC
[2020-11-13] MEDS ORDERED: SODIUM BICARBONATE 8.4% 1 MEQ/ML 50ML SYR IV ONE (11:00)
[2020-11-13] MEDS ORDERED: SODIUM BICARBONATE 8.4% 1 MEQ/ML 50ML SYR IV NR ×2 (11:15→17:00)
[2020-11-13] MEDS ORDERED: PROPOFOL 10MG/ML 100ML 100 ML IV PRN (11:45)
[2020-11-13] MEDS: SODIUM POLYSTYRENE SULFONATE 15 G/60 ML BOT NG SCH ×2 (13:18→16:48)
[2020-11-13 13:23] LABS: CHLORIDE 100 mEq/L (98-107)
[2020-11-13 13:38] LABS: T4 FREE 0.74 ng/dL (0.76-1.46)
[2020-11-13 16:32] LABS: BG BASE EXCESS -7.2 mmol/L (-2.0-2.0); BG DEOXYHEMOGLOBIN 3.6 % (0.0-5.0); BG FRACTION INSPIRED OXYGEN 100; BG METHEMOGLOBIN 0.2 % (0.0-1.5); BG OXYGEN SATURATION 96.4 % (92.0-98.5); BG OXYHEMOGLOBIN 96.2 % (94.0-97.0); BG PCO2 47.1 mmHg (35.0-45.0); BG PH 7.246 (7.350-7.450); BG PO2 98.6 mmHg (75.0-100.0); BG SAMPLE SITE RIGHT RADIAL; BG TOTAL HEMOGLOBIN 12.6 g/dL (12.0-18.0); BG VENT MODE VENT - PRVC
[2020-11-13 17:42] LABS: INR 1.2; PARTIAL THROMBOPLASTIN TIME 29.8 sec (23.4-31.0); PROTHROMBIN TIME 13.1 sec (9.6-11.0)
[2020-11-13] MEDS: ACETAMINOPHEN 325MG TABLET PO PRN (21:05)
[2020-11-14] VITALS (103 sets, daily range): BP systolic 80–162; BP diastolic 25–124
[2020-11-14] MEDS: ACETAMINOPHEN 650MG SUPP PR PRN (00:29)
[2020-11-14] MEDS: IPRATROPIUM/ALBUTEROL 0.5-3(2.5)MG/3ML NEB HHN SCH ×4 (02:09→20:34)
[2020-11-14] MEDS: MIDAZOLAM HCL 100 MG in SODIUM CHLORIDE 0.9% 80 ML IV PRN ×3 (04:09→17:09)
[2020-11-14] MEDS: FENTANYL CITRATE/PF 2,500 MCG in SODIUM CHLORIDE 0.9% 200 ML IV PRN ×3 (05:23→21:33)
[2020-11-14 06:41] LABS: HEPATITIS B SURFACE ANTIGEN NEGATIVE
[2020-11-14] MEDS: DEXAMETHASONE 10 MG/ML VIAL IV SCH (08:43)
[2020-11-14] MEDS: LEVOTHYROXINE SODIUM 50MCG TABLET PO SCH (08:44)
[2020-11-14] MEDS: FAMOTIDINE 20MG TABLET PO SCH (08:44)
[2020-11-14 09:09] LABS: BG BASE EXCESS -4.5 mmol/L (-2.0-2.0); BG CARBOXYHEMOGLOBIN 0.3 % (0.5-1.5); BG DEOXYHEMOGLOBIN 0.6 % (0.0-5.0); BG FRACTION INSPIRED OXYGEN 100; BG HCO3 ACT 20.2 mmol/L (22.0-26.0); BG METHEMOGLOBIN 0.3 % (0.0-1.5); BG OXYGEN SATURATION 99.4 % (92.0-98.5); BG OXYHEMOGLOBIN 98.8 % (94.0-97.0); BG PCO2 35.9 mmHg (35.0-45.0); BG PH 7.368 (7.350-7.450); BG PO2 250.1 mmHg (75.0-100.0); BG SAMPLE SITE LEFT RADIAL; BG VENT MODE PRVC
[2020-11-14 09:15] LABS: HEMATOCRIT. 37.6 % (36.0-48.0); MEAN CORPUSCULAR HEMOGLOBIN 25.5 pg (28.0-32.0); MEAN CORPUSCULAR VOLUME 80.3 fL (81.0-99.0); MEAN PLATELET VOLUME 10.8 fl (7.4-10.4); PLATELET 239 x1000/uL (130-400); RED BLOOD CELL COUNT 4.69 mill/uL (4.2-5.4); RED CELL DISTRIBUTION WIDTH 15.1 % (11.6-14.6)
[2020-11-14] MEDS ORDERED: PROPOFOL 10MG/ML 100ML 100 ML IV PRN (12:45)
[2020-11-14 14:09] LABS: PLATELET ESTIMATE NORMAL
[2020-11-15] VITALS (80 sets, daily range): BP systolic 103–143; BP diastolic 49–98
[2020-11-15] MEDS: MIDAZOLAM HCL 100 MG in SODIUM CHLORIDE 0.9% 80 ML IV PRN ×3 (00:01→15:21)
[2020-11-15] MEDS: IPRATROPIUM/ALBUTEROL 0.5-3(2.5)MG/3ML NEB HHN SCH ×4 (03:00→20:50)
[2020-11-15] MEDS: ACETAMINOPHEN 650MG SUPP PR PRN (03:48)
[2020-11-15] MEDS: FENTANYL CITRATE/PF 2,500 MCG in SODIUM CHLORIDE 0.9% 200 ML IV PRN ×3 (05:49→23:08)
[2020-11-15 06:33] LABS: HEMATOCRIT. 32.7 % (36.0-48.0); HEMOGLOBIN. 10.7 g/dL (12.0-16.0); MEAN CORPUSCULAR HEMOGLOBIN 25.8 pg (28.0-32.0); MEAN CORPUSCULAR VOLUME 79.1 fL (81.0-99.0); MEAN PLATELET VOLUME 11.2 fl (7.4-10.4); PLATELET 218 x1000/uL (130-400); RED BLOOD CELL COUNT 4.13 mill/uL (4.2-5.4); RED CELL DISTRIBUTION WIDTH 15.1 % (11.6-14.6)
[2020-11-15 07:39] LABS: PHOSPHORUS 8.7 mg/dL (2.5-4.9)
[2020-11-15 08:13] LABS: PLATELET ESTIMATE NORMAL
[2020-11-15] MEDS ORDERED: DEXTROSE 50% WATER 50ML SYRINGE IV PRN (08:30)
[2020-11-15] MEDS: DEXAMETHASONE 10 MG/ML VIAL IV SCH (08:33)
[2020-11-15] MEDS: FAMOTIDINE 20MG TABLET PO SCH (08:34)
[2020-11-15] MEDS: LEVOTHYROXINE SODIUM 75MCG TABLET PO SCH (08:34)
[2020-11-15 08:37] LABS: BG BASE EXCESS -4.6 mmol/L (-2.0-2.0); BG CARBOXYHEMOGLOBIN 0.3 % (0.5-1.5); BG DEOXYHEMOGLOBIN 0.8 % (0.0-5.0); BG FRACTION INSPIRED OXYGEN 100; BG HCO3 ACT 19.1 mmol/L (22.0-26.0); BG METHEMOGLOBIN 0.4 % (0.0-1.5); BG OXYGEN SATURATION 99.2 % (92.0-98.5); BG OXYHEMOGLOBIN 98.5 % (94.0-97.0); BG PCO2 30.9 mmHg (35.0-45.0); BG PH 7.409 (7.350-7.450); BG PO2 239.4 mmHg (75.0-100.0); BG SAMPLE SITE RIGHT RADIAL; BG TOTAL HEMOGLOBIN 11.6 g/dL (12.0-18.0); BG VENT MODE PRVC
[2020-11-15] MEDS: INSULIN LISPRO 100 UNITS/ML SUBCUT SCH ×4 (08:47→23:47)
[2020-11-15] MEDS ORDERED: ENOXAPARIN 40MG/0.4ML SYR SUBCUT SCH (09:00)
[2020-11-15] MEDS ORDERED: HEPARIN SODIUM 1,000 UNIT/1ML VIAL IV NR ×2 (11:15→18:30)
[2020-11-15] MEDS: BLOOD SUGAR DIAGNOSTIC STRIP TEST SCH ×3 (12:00→23:38)
[2020-11-15] MEDS: CALCIUM ACETATE 667MG CAPSULE NG SCH ×2 (13:42→22:55)
[2020-11-16] VITALS (116 sets, daily range): BP systolic 63–158; BP diastolic 28–95
[2020-11-16] MEDS: IPRATROPIUM/ALBUTEROL 0.5-3(2.5)MG/3ML NEB HHN SCH ×4 (00:24→20:55)
[2020-11-16 01:40] LABS: HEMATOCRIT. 34.2 % (36.0-48.0); HEMOGLOBIN. 11.3 g/dL (12.0-16.0); MEAN CORPUSCULAR HEMOGLOBIN 26.9 pg (28.0-32.0); MEAN CORPUSCULAR VOLUME 81.5 fL (81.0-99.0); MEAN PLATELET VOLUME 11.1 fl (7.4-10.4); PLATELET 201 x1000/uL (130-400); RED BLOOD CELL COUNT 4.19 mill/uL (4.2-5.4); RED CELL DISTRIBUTION WIDTH 15.5 % (11.6-14.6)
[2020-11-16] MEDS: DILTIAZEM HCL 125 MG in DEXT 5% WATER 100 ML IV PRN ×3 (01:53→16:17)
[2020-11-16] MEDS: PHENYLEPHRINE 100 MG in DEXT 5% WATER 240 ML IV PRN (02:31)
[2020-11-16] MEDS ORDERED: DIGOXIN 500MCG/2ML AMP IV NR (03:15)
[2020-11-16] MEDS: BLOOD SUGAR DIAGNOSTIC STRIP TEST SCH ×4 (05:36→23:21)
[2020-11-16] MEDS: CALCIUM ACETATE 667MG CAPSULE NG SCH (05:51)
[2020-11-16] MEDS: INSULIN LISPRO 100 UNITS/ML SUBCUT SCH ×4 (05:52→23:21)
[2020-11-16 06:25] LABS: HEMOGLOBIN. 11.3 g/dL (12.0-16.0); MEAN CORPUSCULAR HEMOGLOBIN 25.5 pg (28.0-32.0); MEAN CORPUSCULAR VOLUME 81.4 fL (81.0-99.0); MEAN PLATELET VOLUME 11.4 fl (7.4-10.4); PLATELET 260 x1000/uL (130-400); RED BLOOD CELL COUNT 4.42 mill/uL (4.2-5.4); RED CELL DISTRIBUTION WIDTH 15.3 % (11.6-14.6)
[2020-11-16 06:32] LABS: CHLORIDE 98 mEq/L (98-107)
[2020-11-16 06:40] LABS: PLATELET ESTIMATE NORMAL
[2020-11-16] MEDS: FAMOTIDINE 20MG TABLET PO SCH (08:20)
[2020-11-16] MEDS: LEVOTHYROXINE SODIUM 75MCG TABLET PO SCH (08:20)
[2020-11-16] MEDS: ENOXAPARIN 30MG/0.3ML SYR SUBCUT SCH (08:20)
[2020-11-16] MEDS: DEXAMETHASONE 10 MG/ML VIAL IV SCH (08:20)
[2020-11-16 09:14] LABS: BG BASE EXCESS -6.2 mmol/L (-2.0-2.0); BG CARBOXYHEMOGLOBIN 0.3 % (0.5-1.5); BG DEOXYHEMOGLOBIN 1.5 % (0.0-5.0); BG FRACTION INSPIRED OXYGEN 100; BG HCO3 ACT 18.2 mmol/L (22.0-26.0); BG METHEMOGLOBIN 0.3 % (0.0-1.5); BG OXYGEN SATURATION 98.5 % (92.0-98.5); BG OXYHEMOGLOBIN 97.9 % (94.0-97.0); BG PCO2 32.7 mmHg (35.0-45.0); BG PH 7.364 (7.350-7.450); BG PO2 144.6 mmHg (75.0-100.0); BG SAMPLE SITE LEFT RADIAL; BG TOTAL HEMOGLOBIN 11.8 g/dL (12.0-18.0); BG TOTAL RESPIRATORY RATE 40 b/min; BG VENT MODE VENT- PRVC
[2020-11-16 10:25] LABS: PLATELET ESTIMATE NORMAL
[2020-11-16] MEDS: CALCIUM ACETATE 667 MG/5 ML SOLUTION NG SCH ×2 (14:00→21:27)
[2020-11-16] MEDS: MEROPENEM 1,000 MG in SODIUM CHLORIDE 0.9% 100 ML IV SCH (18:23)
[2020-11-16] MEDS ORDERED: INSULIN GLARGINE UD 100 UNITS/ML SYR SUBCUT SCH (22:00)
[2020-11-17] VITALS (121 sets, daily range): BP systolic 93–135; BP diastolic 45–73
[2020-11-17] MEDS: DILTIAZEM HCL 125 MG in DEXT 5% WATER 100 ML IV PRN ×3 (01:28→18:20)
[2020-11-17] MEDS: CALCIUM ACETATE 667 MG/5 ML SOLUTION NG SCH ×3 (05:35→23:19)
[2020-11-17] MEDS: BLOOD SUGAR DIAGNOSTIC STRIP TEST SCH ×3 (05:35→17:12)
[2020-11-17 06:04] LABS: HEMATOCRIT. 32.1 % (36.0-48.0); HEMOGLOBIN. 10.3 g/dL (12.0-16.0); MEAN CORPUSCULAR HEMOGLOBIN 25.8 pg (28.0-32.0); MEAN PLATELET VOLUME 11.2 fl (7.4-10.4); PLATELET 206 x1000/uL (130-400); RED BLOOD CELL COUNT 4.01 mill/uL (4.2-5.4); RED CELL DISTRIBUTION WIDTH 15.5 % (11.6-14.6)
[2020-11-17] MEDS: INSULIN LISPRO 100 UNITS/ML SUBCUT SCH ×4 (06:17→23:20)
[2020-11-17 06:19] LABS: CHLORIDE 99 mEq/L (98-107)
[2020-11-17 06:26] LABS: PHOSPHORUS 7.8 mg/dL (2.5-4.9)
[2020-11-17] MEDS: IPRATROPIUM/ALBUTEROL 0.5-3(2.5)MG/3ML NEB HHN SCH ×3 (07:50→20:52)
[2020-11-17] MEDS: DEXAMETHASONE 10 MG/ML VIAL IV SCH (08:07)
[2020-11-17] MEDS: FAMOTIDINE 20MG TABLET PO SCH (08:07)
[2020-11-17] MEDS: LEVOTHYROXINE SODIUM 75MCG TABLET PO SCH (08:07)
[2020-11-17] MEDS: ENOXAPARIN 30MG/0.3ML SYR SUBCUT SCH (08:08)
[2020-11-17 08:16] LABS: PLATELET ESTIMATE NORMAL
[2020-11-17] MEDS ORDERED: INSULIN GLARGINE UD 100 UNITS/ML SYR SUBCUT SCH ×2 (10:00→22:00)
[2020-11-17 11:58] LABS: BG BASE EXCESS -3.3 mmol/L (-2.0-2.0); BG CARBOXYHEMOGLOBIN 0.3 % (0.5-1.5); BG HCO3 ACT 20.6 mmol/L (22.0-26.0); BG METHEMOGLOBIN 0.5 % (0.0-1.5); BG OXYHEMOGLOBIN 96.2 % (94.0-97.0); BG PCO2 33.1 mmHg (35.0-45.0); BG PH 7.411 (7.350-7.450); BG PO2 101.3 mmHg (75.0-100.0); BG SAMPLE SITE RIGHT RADIAL; BG TOTAL HEMOGLOBIN 12.4 g/dL (12.0-18.0); BG VENT MODE VENT- PRVC
[2020-11-17 14:01] LABS: UCG SCREEN NEGATIVE
[2020-11-17] MEDS: MEROPENEM 1,000 MG in SODIUM CHLORIDE 0.9% 100 ML IV SCH (18:20)
[2020-11-18] VITALS (115 sets, daily range): BP systolic 96–121; BP diastolic 39–68
[2020-11-18] MEDS: IPRATROPIUM/ALBUTEROL 0.5-3(2.5)MG/3ML NEB HHN SCH ×4 (00:48→19:59)
[2020-11-18] MEDS: DILTIAZEM HCL 125 MG in DEXT 5% WATER 100 ML IV PRN ×3 (02:35→20:40)
[2020-11-18] MEDS: CALCIUM ACETATE 667 MG/5 ML SOLUTION NG SCH ×3 (05:43→22:10)
[2020-11-18] MEDS: BLOOD SUGAR DIAGNOSTIC STRIP TEST SCH ×5 (06:00→23:00)
[2020-11-18 06:03] LABS: HEMATOCRIT. 31.8 % (36.0-48.0); HEMOGLOBIN. 10.4 g/dL (12.0-16.0); MEAN CORPUSCULAR HEMOGLOBIN 25.9 pg (28.0-32.0); MEAN CORPUSCULAR VOLUME 79.1 fL (81.0-99.0); MEAN PLATELET VOLUME 10.8 fl (7.4-10.4); PLATELET 208 x1000/uL (130-400); RED BLOOD CELL COUNT 4.02 mill/uL (4.2-5.4); RED CELL DISTRIBUTION WIDTH 15.2 % (11.6-14.6)
[2020-11-18 06:29] LABS: PHOSPHORUS 6.7 mg/dL (2.5-4.9)
[2020-11-18] MEDS ORDERED: INSULIN LISPRO 100 UNITS/ML SUBCUT NR ×3 (07:15→18:45)
[2020-11-18] MEDS ORDERED: INSULIN LISPRO 100 UNITS/ML SUBCUT SCH (07:30)
[2020-11-18] MEDS: LEVOTHYROXINE SODIUM 75MCG TABLET PO SCH (08:38)
[2020-11-18] MEDS: FAMOTIDINE 20MG TABLET PO SCH (08:38)
[2020-11-18] MEDS: DEXAMETHASONE 10 MG/ML VIAL IV SCH (08:38)
[2020-11-18 08:47] LABS: BG BASE EXCESS -1.7 mmol/L (-2.0-2.0); BG CARBOXYHEMOGLOBIN 0.3 % (0.5-1.5); BG DEOXYHEMOGLOBIN 1.4 % (0.0-5.0); BG FRACTION INSPIRED OXYGEN 100; BG HCO3 ACT 21.4 mmol/L (22.0-26.0); BG METHEMOGLOBIN 0.6 % (0.0-1.5); BG OXYGEN SATURATION 98.6 % (92.0-98.5); BG OXYHEMOGLOBIN 97.7 % (94.0-97.0); BG PCO2 30.8 mmHg (35.0-45.0); BG PH 7.459 (7.350-7.450); BG PO2 161.9 mmHg (75.0-100.0); BG SAMPLE SITE RIGHT RADIAL; BG TOTAL HEMOGLOBIN 11.6 g/dL (12.0-18.0)
[2020-11-18] MEDS ORDERED: INSULIN GLARGINE UD 100 UNITS/ML SYR SUBCUT SCH (10:00)
[2020-11-18] MEDS ORDERED: SODIUM POLYSTYRENE SULFONATE 15 G/60 ML BOT PO NR (10:00)
[2020-11-18] MEDS: INSULIN LISPRO 100 UNITS/ML SUBCUT SCH ×4 (12:00→21:00)
[2020-11-18 12:16] LABS: PLATELET ESTIMATE NORMAL
[2020-11-18] MEDS: MEROPENEM 1,000 MG in SODIUM CHLORIDE 0.9% 100 ML IV SCH (18:50)
[2020-11-18] MEDS ORDERED: INSULIN REGULAR (DRIP) 100 UNITS in SODIUM CHLORIDE 0.9% 99 ML IV PRN (22:00)
[2020-11-18] MEDS ORDERED: DEXTROSE 50% WATER 50ML SYRINGE IV PRN ×2 (22:00)
[2020-11-18] MEDS: INSULIN REGULAR (DRIP) 100 UNITS in SODIUM CHLORIDE 0.9% 100 ML IV SCH (22:55)
[2020-11-19] VITALS (89 sets, daily range): BP systolic 107–124; BP diastolic 46–72
[2020-11-19] MEDS: BLOOD SUGAR DIAGNOSTIC STRIP TEST SCH ×20 (01:00→20:00)
[2020-11-19] MEDS: INSULIN REGULAR (DRIP) 100 UNITS in SODIUM CHLORIDE 0.9% 100 ML IV SCH ×2 (04:22→15:44)
[2020-11-19] MEDS: IPRATROPIUM/ALBUTEROL 0.5-3(2.5)MG/3ML NEB HHN SCH ×4 (04:26→20:04)
[2020-11-19] MEDS: DILTIAZEM HCL 125 MG in DEXT 5% WATER 100 ML IV PRN (05:26)
[2020-11-19] MEDS: CALCIUM ACETATE 667 MG/5 ML SOLUTION NG SCH ×2 (05:33→14:59)
[2020-11-19 07:35] LABS: HEMATOCRIT. 33.2 % (36.0-48.0); HEMOGLOBIN. 10.6 g/dL (12.0-16.0); MEAN CORPUSCULAR HEMOGLOBIN 25.7 pg (28.0-32.0); MEAN CORPUSCULAR VOLUME 80.4 fL (81.0-99.0); MEAN PLATELET VOLUME 10.7 fl (7.4-10.4); PLATELET 185 x1000/uL (130-400); RED BLOOD CELL COUNT 4.13 mill/uL (4.2-5.4); RED CELL DISTRIBUTION WIDTH 15.6 % (11.6-14.6)
[2020-11-19 08:46] LABS: PHOSPHORUS 7.1 mg/dL (2.5-4.9)
[2020-11-19 09:39] LABS: BG BASE EXCESS -0.2 mmol/L (-2.0-2.0); BG CARBOXYHEMOGLOBIN 0.1 % (0.5-1.5); BG FRACTION INSPIRED OXYGEN 100; BG HCO3 ACT 23.4 mmol/L (22.0-26.0); BG METHEMOGLOBIN 0.3 % (0.0-1.5); BG OXYHEMOGLOBIN 95.6 % (94.0-97.0); BG PCO2 34.9 mmHg (35.0-45.0); BG PH 7.445 (7.350-7.450); BG SAMPLE SITE RIGHT RADIAL; BG TOTAL HEMOGLOBIN 11.4 g/dL (12.0-18.0); BG VENT MODE VENT - PRVC
[2020-11-19] MEDS: LEVOTHYROXINE SODIUM 75MCG TABLET PO SCH (09:42)
[2020-11-19] MEDS: FAMOTIDINE 20MG TABLET PO SCH (09:43)
[2020-11-19] MEDS: DEXAMETHASONE 10 MG/ML VIAL IV SCH (09:43)
[2020-11-19 17:15] LABS: HEPATITIS B SURFACE ANTIGEN NEGATIVE
[2020-11-19 20:55] LABS: PLATELET ESTIMATE NORMAL
[2020-11-19] MEDS: MEROPENEM 1,000 MG in SODIUM CHLORIDE 0.9% 100 ML IV SCH (21:06)
== END 2020-11-19 23:54 | DRG 720 ==
LOC: ER 13:54 → MICUSO 18:31 → EDBEDREQ 18:36 → EDBEDREQSVC 18:36 → 7WST 10-27 01:25 → MICUSO 11-04 22:30 → CVICU 11-07 20:20
PROVIDERS: ADMIT Family Medicine; ATTEND Family Medicine
PROC: 5A09457 Assistance with Respiratory Ventilation, 24-96 Consecutive Hours, Continuous Positive Airway Pressure (ICD-10-PCS; 2020-11-01)
PROC: 5A09557 Assistance with Respiratory Ventilation, Greater than 96 Consecutive Hours, Continuous Positive Airway Pressure (ICD-10-PCS; 2020-11-04)
PROC: 5A1955Z Respiratory Ventilation, Greater than 96 Consecutive Hours (ICD-10-PCS; 2020-11-11)
PROC: 0BH17EZ Insertion of Endotracheal Airway into Trachea, Via Natural or Artificial Opening (ICD-10-PCS; 2020-11-11)
PROC: 05HY33Z Insertion of Infusion Device into Upper Vein, Percutaneous Approach (ICD-10-PCS; 2020-11-12)
PROC: B54MZZA Ultrasonography of Right Upper Extremity Veins, Guidance (ICD-10-PCS; 2020-11-12)
PROC: 02HV33Z Insertion of Infusion Device into Superior Vena Cava, Percutaneous Approach (ICD-10-PCS; principal; 2020-11-13)
PROC: B548ZZA Ultrasonography of Superior Vena Cava, Guidance (ICD-10-PCS; 2020-11-13)
PROC: 5A1D70Z Performance of Urinary Filtration, Intermittent, Less than 6 Hours Per Day (ICD-10-PCS; 2020-11-13)
PROC: 5A1D70Z Performance of Urinary Filtration, Intermittent, Less than 6 Hours Per Day (ICD-10-PCS; 2020-11-15)
PROC: 5A1D70Z Performance of Urinary Filtration, Intermittent, Less than 6 Hours Per Day (ICD-10-PCS; 2020-11-17)
PROC: 5A1D70Z Performance of Urinary Filtration, Intermittent, Less than 6 Hours Per Day (ICD-10-PCS; 2020-11-19)
DX: A41.89 Other specified sepsis (principal); J96.01 Acute respiratory failure with hypoxia; N17.0 Acute kidney failure with tubular necrosis; J12.82 Pneumonia due to coronavirus disease 2019; J15.9 Unspecified bacterial pneumonia; U07.1 COVID-19; G93.40 Encephalopathy, unspecified; N18.6 End stage renal disease; I12.0 Hypertensive chronic kidney disease with stage 5 chronic kidney disease or end stage renal disease; D64.9 Anemia, unspecified; E11.22 Type 2 diabetes mellitus with diabetic chronic kidney disease; E87.2 Acidosis; E03.9 Hypothyroidism, unspecified; J45.909 Unspecified asthma, uncomplicated; K21.9 Gastro-esophageal reflux disease without esophagitis; R65.20 Severe sepsis without septic shock; E87.6 Hypokalemia; E66.01 Morbid (severe) obesity due to excess calories; F41.9 Anxiety disorder, unspecified; I47.1 Supraventricular tachycardia; E11.65 Type 2 diabetes mellitus with hyperglycemia; S00.33XA Contusion of nose, initial encounter; Y84.8 Other medical procedures as the cause of abnormal reaction of the patient, or of later complication, without mention of misadventure at the time of the procedure; Y82.8 Other medical devices associated with adverse incidents; I48.91 Unspecified atrial fibrillation; K76.0 Fatty (change of) liver, not elsewhere classified; Z79.890 Hormone replacement therapy; Z99.2 Dependence on renal dialysis; Z82.49 Family history of ischemic heart disease and other diseases of the circulatory system; Z68.39 Body mass index [BMI] 39.0-39.9, adult; Z28.3 Underimmunization status; Z68.41 Body mass index [BMI] 40.0-44.9, adult; Y93.89 Activity, other specified; Y92.89 Other specified places as the place of occurrence of the external cause; Y99.8 Other external cause status
CPT/HCPCS: 31500; 36415; 36556; 36600; 71045; 71275; 76770; 76937; 78610; 80048; 80053; 80061; 80076; 80305; 80320; 81003; 81025; 82040; 82248; 82375; 82550; 82728; 82805; 82962; 83036; 83605; 83615; 83735; 84100; 84134; 84145; 84439; 84443; 84478; 84484; 84703; 85025; 85384; 86140; 86141; 86705; 86709; 86803; 87070; 87340; 87426; 93005; 93306; 94002; 94003; 94640; 94660; 95816; 99285; A9512; C1725; C1752; J0330; J0456; J0692; J0696; J1100; J1160; J1200; J1265; J1644; J1650; J1815; J1885; J2185; J2250; J2370; J2405; J2704; J3010; J3490; J7030; J7040; J7050; J7060; J7512; Q9967; A4315; G0480